=== PATIENT | female | born 1970 | race Caucasian/White ===

== ENCOUNTER 2016-08-23 18:42 | Emergency (ER) | payer MEDICAID, OTHER ==
[~2016-08-23] VITALS: Ht 157.5 cm; Wt 64.5 kg
[~2016-08-23 18:42] MED LIST: ACET-2158 GTB; HYDR-3498 PO; NITR-58 PO
[2016-08-23 18:47] VITALS: Ht 157.5 cm; Wt 64.5 kg
[2016-08-23] MEDS ORDERED: ACETAMINOPHEN 325 MG TAB PO ONE (19:30)
[2016-08-23 20:08] LABS: URINE BLOOD (Dip) POC Negative (NEGATIVE)
--- NOTE | 2016-08-23 21:03 | ERD ---
ER Documentation Chief Complaint Date/Time DATE: 08/23/16 TIME: 21:02 Chief Complaint cough x 10 days HPI 45-year-old female presents here in emergency department for complaints of right upper back pain cough for 10 days. Patient has been having dry cough, does not cough up any phlegm or blood. Patient did not take any medications to help with symptoms. Patient is complaining of right upper back pain, 4/10 scale , worse upon taking a deep breath. Patient denies any fever or chills. Patient denies chest pain. Patient denies any dizziness. Patient denies any shortness of breath. ROS All systems reviewed and are negative except as per history of present illness. Medications Home Meds Active Scripts Nitrofurantoin Monohyd Macrocr* (Macrobid*) 100 Mg Capsr, 100 MG PO BID for 7 Days, CAP Prov:ANSHUL ROCHA 11/23/15 Hydrocodone Bit-Acetaminophen* ([place]*) 5-325 Mg Tab, 1 TAB PO Q6 Y for PAIN, # 10 TAB Prov:ANSHUL ROCHA 11/23/15 Reported Medications Acetaminophen (TYLENOL 325 MG TAB) 325 Mg Tab, 325 MG GTB PRN 12/20/12 Allergies Allergies: Coded Allergies: No Known Allergy (Verified , 12/20/12) PMhx/Soc Medical and Surgical Hx: pt denies Surgical Hx History of Surgery: No Hx Neurological Disorder: No Hx Respiratory Disorders: No Hx Cardiac Disorders: No Hx Miscellaneous Medical Probl: Yes (ANEMIA) Hx Alcohol Use: Yes Hx Substance Use: No Hx Tobacco Use: No Smoking Status: Never smoker FmHx Family History: No coronary disease, No diabetes, No other Physical Exam Vitals Vital Signs Date Time Temp Pulse Resp B/P Pulse Ox O2 Delivery O2 Flow Rate FiO2 08/23/16 18:47 98.3 69 20 131/60 98 Physical Exam GENERAL: The patient is well developed and appropriate for usual state of health, in no apparent distress. CHEST: Clear to auscultation bilaterally. There are no rales, wheezes or rhonchi. HEART: Regular rate and rhythm. No murmurs, clicks, rubs or gallops. No S3 or S4. ABDOMEN: Soft, nontender and nondistended. Good bowel sounds. No rebound or guarding. No gross peritonitis. No gross organomegaly or masses. No Oakes sign or McBurney point tenderness. BACK: No midline or flank tenderness. EXTREMITIES: Equal pulses bilaterally. There is no peripheral clubbing, cyanosis or edema. No focal swelling or erythema. Full range of motion. Grossly neurovascularly intact. NEURO: Alert and oriented. Cranial nerves 2-12 intact. Motor strength in all 4 extremities with 5/5 strength. Sensation grossly intact. Normal speech and gait. SKIN: There is no apparent rash or petechia. The skin is warm and dry. HEMATOLOGIC AND LYMPHATIC: There is no evidence of excessive bruising or lymphedema. No gross cervical, axillary, or inguinal lymphadenopathy. Results 24 hrs Laboratory Tests Test 08/23/16 20:08 Bedside Urine pH (LAB) 7.0 Bedside Urine Protein (LAB) Negative Bedside Urine Glucose (UA) Negative Bedside Urine Ketones (LAB) Negative Bedside Urine Blood Negative Bedside Urine Nitrite (LAB) Negative Bedside Urine Leukocyte Esterase (L 1+ Current Medications Medications (Trade) Dose Ordered Sig/Ernato Route PRN Reason Start Time Stop Time Status Last Admin Dose Admin Acetaminophen (Tylenol Tab) 650 mg ONCE ONCE PO 08/23/16 19:30 08/23/16 19:31 DC 08/23/16 19:31 Patient was given medication for pain here in emergency department, after treatment, patient verbalized feeling much better. Patient's pain is improved. PROCEDURE: XR Chest. CLINICAL INDICATION: Dyspnea TECHNIQUE: Single frontal chest x-ray. COMPARISON: None. FINDINGS: The lungs are clear. No focal opacification is seen. The cardiomediastinal silhouette is unremarkable. The osseous structures are unremarkable. IMPRESSION: 1. There is no acute cardiopulmonary process. RPTAT: HMJB .Steven Lyn MD, MD Date Time Electronically viewed and signed by .Steven Lyn MD, MD on 08/23/2016 22:36 .B/ CC: KODI JACOBS MD Procedures/MDM Medical Decision Making: Patient symptoms are most likely consistent with with back chest wall strain, upper back pain most likely musculoskeletal pain. There is low suspicion for Pneumonia at this time since patients lungs sounds are clear, patient O2 saturation is normal and patient doesnt show any respiratory distress. Patients chest xray doesnt show infiltrates or any other cardiopulmonary emergencies at this time. There is low suspicion for other cardiopulmonary emergencies at this time such as CHF, Pulmonary Embolism, Pneumothorax, Aortic Aneurysm or any other cardiopulmonary emergencies at this time. There is low suspicion for sepsis. Patient appears well and is hemodynamically stable. Disposition: Home. Condition: Stable Prescriptions: Guaifenesin with codeine, Zyrtec, ibuprofen Instructions: Patient is advised to take medications as prescribed. Patient is advised to rest. Patient advised to increase fluid intake, do humidifier at home and if possible, do salt water gargles. Patient is advised that if symptoms are worse, shortness of breath, uncontrolled fever, stridor, vomiting, worst signs and symptoms to return to emergency department immediately. Otherwise, patient is advised to follow up with primary doctor in 5-7 days. Departure Diagnosis: Primary Impression: Acute bronchitis Bronchitis organism: unspecified organism Qualified Code: J20.9 - Acute bronchitis, unspecified organism Additional Impression: Back pain Back pain location: thoracic back pain Chronicity: acute Back pain laterality: right Qualified Code: M54.6 - Acute right-sided thoracic back pain Condition: Stable Patient Instructions: Back Pain (Acute Or Chronic), Bronchitis, No Antibiotic ( Adult) Additional Instructions: Patient is advised to take medications as prescribed. Patient is advised to rest. Patient advised to increase fluid intake, do humidifier at home and if possible, do salt water gargles. Patient is advised that if symptoms are worse, shortness of breath, uncontrolled fever, stridor, vomiting, worst signs and symptoms to return to emergency department immediately. Otherwise, patient is advised to follow up with primary doctor in 5-7 days. LOUISE MOBLEY NP Aug 23, 2016 21:03
--- NOTE | 2016-08-23 22:37 | RADRPT ---
PROCEDURE: XR Chest. CLINICAL INDICATION: Dyspnea TECHNIQUE: Single frontal chest x-ray. COMPARISON: None. FINDINGS: The lungs are clear. No focal opacification is seen. The cardiomediastinal silhouette is unremarka ble. The osseous structures are unremarkable. IMPRESSION: 1. There is no acute cardiopulmonary process. RPTAT: HMJB .Steven Lyn MD, MD Date Time Electronically viewed and signed by .Steven Lyn MD, on 08/23/2016 22:36 .B/
[2016-08-23] MEDS ORDERED: GUAI473L22 PO (22:46)
[2016-08-23] MEDS ORDERED: IBUP-1542 PO (22:46)
[2016-08-23] MEDS ORDERED: CETI10CA PO (22:46)
[2016-08-23 23:00] VITALS: BP 127/59; PULSE 62
== END 2016-08-23 23:03 | disposition home or self-care (01) ==
LOC: FTE 18:42
DX: J20.9 Acute bronchitis, unspecified (principal); M54.6 Pain in thoracic spine
CPT/HCPCS: 71010; 81003; 93005

== ENCOUNTER 2016-09-22 08:50 | Emergency (ER) | payer MEDICAID ==
[~2016-09-22] VITALS: Ht 154.9 cm; Wt 65.0 kg
[2016-09-22 08:50] VITALS: Ht 154.9 cm; Wt 65.0 kg
[~2016-09-22 08:50] MED LIST changes: +CETI10CA PO; +GUAI473L22 PO; +IBUP-1542 PO
[2016-09-22] MEDS ORDERED: HYDROCODONE/APAP (5/325) TAB PO ONE (09:30)
[2016-09-22 09:47] LABS: URINE BLOOD (Dip) POC Negative (NEGATIVE)
--- NOTE | 2016-09-22 10:07 | RADRPT ---
PROCEDURE: US Pelvis. CLINICAL INDICATION: pelvic pain TECHNIQUE: Multiple sonographic images of the pelvis were obtained utilizing a transabdominal and endovaginal technique. The images were reviewed on a PACS workstation. COMPARISON: None. FINDINGS: The uterus is normal in size with a normal appearance of the myometrium. The uterus measures 7.6 x 3.2 x 4.7 cm. The endometrial stripe is homogeneous in appearance and has the thickness of 6 mm. There are multiple Nabothian cysts in the cervix. The ovaries are normal in size and echogenicity. Normal Doppler flow is identified in both ovaries. The right ovary measures 3.0 x 1.6 x 1.8 cm. There is a 1.7 cm simple cyst in the right ovary. The left ovary measures 2.1 x 1.4 x 1.5 cm. No free fluid is present within the pelvis. RPTAT: AA IMPRESSION: Small simple cyst in the right ovary. Otherwise unremarkable. .Saurabh Sierra MD, MD Date Time Electronically viewed and signed by .Saurabh Sierra MD, on 09/22/2016 10:07 .S/
[2016-09-22] MEDS ORDERED: TRAM50TA2 PO (10:22)
[2016-09-22 10:39] VITALS: BP 126/74; PULSE 78; RESP 18; TEMP 97.9
--- NOTE | 2016-09-22 10:40 | ERD ---
ER Documentation Chief Complaint Date/Time DATE: 09/22/16 TIME: 10:38 Chief Complaint pelvic pain x 2 weeks, hx ovaryan cyst HPI 45-year-old female with history of ovarian cyst comes emergency room with bilateral pelvic pain, worse on the right side over the last 2 weeks. Patient states that she normally takes ibuprofen and it has seemed to help, and is here in the emergency room for repeat ultrasound. She states that her pain is sharp , the right pelvic region, at times it is diffuse. She states that she is sexually active. Uses condoms for protection does not have any history of vaginal discharge. She denies any fevers, chills. ROS All systems reviewed and are negative except as per history of present illness. Medications Home Meds Active Scripts Tramadol HCl (Tramadol HCl) 50 Mg Tablet, 50 MG PO Q4 Y for PAIN, #20 TAB Prov:IKE PEREZ PA-C 09/22/16 Cetirizine Hcl* (Zyrtec*) 10 Mg Capsule, 10 MG PO DAILY, #30 TAB.CHEW Prov:LOUISE MOBLEY NP 08/23/16 Guaifenesin-Codeine Phosphate* (Guaifenesin* AC Cough Syrup) 473 Ml Liquid, 5 ML PO Q4H Y for COUGH, #60 ML Prov:LOUISE MOBLEY NP 08/23/16 Ibuprofen* (Motrin*) 600 Mg Tab, 600 MG PO Q6H Y for PAIN AND OR ELEVATED TEMP, #30 TAB Prov:LOUISE MOBLEY NP 08/23/16 Nitrofurantoin Monohyd Macrocr* (Macrobid*) 100 Mg Capsr, 100 MG PO BID for 7 Days, CAP Prov:ANSHUL ROCHA 11/23/15 Hydrocodone Bit-Acetaminophen* ([place]*) 5-325 Mg Tab, 1 TAB PO Q6 Y for PAIN, # 10 TAB Prov:ANSHUL ROCHA 11/23/15 Reported Medications Acetaminophen (TYLENOL 325 MG TAB) 325 Mg Tab, 325 MG GTB PRN 12/20/12 Allergies Allergies: Coded Allergies: No Known Allergy (Verified , 12/20/12) PMhx/Soc History of Surgery: No Hx Neurological Disorder: No Hx Respiratory Disorders: No Hx Cardiac Disorders: No Hx Miscellaneous Medical Probl: Yes (ANEMIA) Hx Alcohol Use: Yes Hx Substance Use: No Hx Tobacco Use: No Physical Exam Vitals Vital Signs Date Time Temp Pulse Resp B/P Pulse Ox O2 Delivery O2 Flow Rate FiO2 09/22/16 08:50 98.1 70 18 135/71 99 Physical Exam General: Well-developed, well-nourished. The patient appears in no acute distress. HEENT: Head is normocephalic, atraumatic. No scleral icterus. Neck: Supple. Nontender. Lungs: Clear to auscultation. Normal air movement. Heart: Regular rate and rhythm. S1 and S2 are normal. No murmurs, gallops, or rubs. Abdomen: Soft, no McBurney tenderness, rebound or guarding, there is slight tenderness when the right lower pelvic region is palpated nondistended. Bowel sounds are normoactive. Extremities: No clubbing or cyanosis. Normal pulses. Moving extremities x 4. No weakness. Neurologic: Alert and oriented 3. No focal deficits. Skin: Normal turgor. No rash or lesions. Results 24 hrs Laboratory Tests Test 09/22/16 09:48 Bedside Urine pH (LAB) 5.5 Bedside Urine Protein (LAB) Negative Bedside Urine Glucose (UA) Negative Bedside Urine Ketones (LAB) Negative Bedside Urine Blood Negative Bedside Urine Nitrite (LAB) Negative Bedside Urine Leukocyte Esterase (L Negative Current Medications Medications (Trade) Dose Ordered Sig/Renato Route PRN Reason Start Time Stop Time Status Last Admin Dose Admin Acetaminophen/ Hydrocodone Bitart ([place] (5/325)) 1 tab ONCE ONCE PO 09/22/16 09:30 09/22/16 09:31 DC 09/22/16 10:31 PROCEDURE: US Pelvis. CLINICAL INDICATION: pelvic pain TECHNIQUE: Multiple sonographic images of the pelvis were obtained utilizing a transabdominal and endovaginal technique. The images were reviewed on a PACS workstation. COMPARISON: None. FINDINGS: The uterus is normal in size with a normal appearance of the myometrium. The uterus measures 7.6 x 3.2 x 4.7 cm. The endometrial stripe is homogeneous in appearance and has the thickness of 6 mm. There are multiple Nabothian cysts in the cervix. The ovaries are normal in size and echogenicity. Normal Doppler flow is identified in both ovaries. The right ovary measures 3.0 x 1.6 x 1.8 cm. There is a 1.7 cm simple cyst in the right ovary. The left ovary measures 2.1 x 1.4 x 1.5 cm. No free fluid is present within the pelvis. RPTAT: AA IMPRESSION: Small simple cyst in the right ovary. Otherwise unremarkable. .Saurabh Sierra MD, MD Date Time Electronically viewed and signed by .Saurabh Sierra MD, MD on 09/22/2016 10: 07 Procedures/[facility] ED course: She was given [place] in the emergency department, and reports that her pain is improved. When reexamining the patient she does not show any guarding or rebound pain or McBurney's tenderness. She is ambulatory and she is currently eating at this time. Medical decision makin-year-old female comes in with right-sided pelvic pain, differential diagnosis includes ovarian cyst, hemorrhagic cyst, ruptured ovarian cyst, adnexal masses, tubo-ovarian abscess, UTI, pyelonephritis, ectopic and among others are part of my differential diagnosis. Other differentials considered include an abdominal process including appendicitis however unlikely given her benign presentation. Her pelvic ultrasound shows a right simple ovarian cyst, without any adnexal masses and no evidence of ovarian torsion. She will be given a short course of tramadol, she was asked if she may take any medication to prevent cyst, I have given her referral list [facility]. Copies of her ultrasound today as well as her previous ultrasound are given to her at time of discharge to follow-up with her primary care physician for appropriate referral. Departure Diagnosis: Primary Impression: Ovarian cyst Condition: Good Patient Instructions: Ovarian Cyst Referrals: [facility] [place] [id number] [facility] [address] [place] [address] OFFICE FAX KIMO CAMERONNICA [address] [place] [address] DR. JIMENEZ, HARJINDER [address] [place] [address] DR MUNIZ, HESHMAT [address] [facility], [address], [place] [address] DR NELSON-NADER, [facility] [address] [facility] [place] [address] [facility] [address] [place] [address] [facility] [id number] - DR JIMENEZ, USMAN [address], [facility] [address] [address] KAPOOR, LIA [address] [facility]. [address], [facility] [address] [address] SAEED, FARID [address] [place], [place] [id number] Additional Instructions: Llame al doctor MAANA y lili tamara JINNY PARA DENTRO DE 1-2 LAW.Dgale a la secretaria que nosotros le instruimos hacer esta jinny.Avise o llame si kinney condicin se empeora antes de la jinny. Regresa aqui si peor o no mejor. IKE PEREZ PA-C September 22, 2016 10:40
== END 2016-09-22 10:40 | disposition home or self-care (01) ==
LOC: FTE 08:50
DX: N83.201 Unspecified ovarian cyst, right side (principal)
CPT/HCPCS: 76830; 76856; 81003; Z7502; Z7610

== ENCOUNTER 2018-10-03 22:08 | Emergency (ER) | payer MEDICAID, OTHER ==
[~2018-10-03] VITALS: Ht 160 cm; Wt 65.4 kg
[~2018-10-03 22:08] MED LIST changes: +TRAM50TA2 PO
[2018-10-03 22:12] VITALS: Ht 160 cm; Wt 65.4 kg
[2018-10-03] MEDS ORDERED: ACETAMINOPHEN 500 MG TAB PO STA (23:40)
--- NOTE | 2018-10-03 23:40 | ERD ---
ER Documentation Chief Complaint Chief Complaint headache x1week no other neurodeficits/back pain HPI This is a 47-year-old female who presents here in the emergency department with complaints of frontal and occipital headache for about a week. Complains of mild light sensitivity. Also complains of left-sided neck pain and left-sided chest pain that radiates to left upper extremity. Stated that she has multiple family members who had a heart attack before the age of 50. LMP: Stated that she does not have any periods anymore due to her surgery. G2, . Denies headache, head injury, loss of consciousness, dizziness, neck pain, neck stiffness, throat pain, difficulty swallowing, difficulty breathing lying flat, shoulder pain, chest pain, back pain, abdominal pain, nausea, vomiting, constipation, diarrhea, urinary symptoms, or possibility being , loss of bowel and bladder control, trauma, injury, falls, difficulty walking due to pain, numbness or tingling sensation, calf pain, recent travel, r ecent major surgery in the last 3 weeks, calf pain, recent long travel, recent exposure to any illness, recent antibiotic use in the last 3 months, fever, chills, seizures. Past medical history: Surgical history: Social: Denies smoking, use of alcoholic beverages, use of illegal drugs. ROS All systems reviewed and are negative except as per history of present illness. Medications Home Meds Active Scripts Meclizine Hcl* (Antivert*) 12.5 Mg Tab, 12.5 MG PO Q6H PRN for DIZZINESS, #20 TAB Prov:GOILADARELL TABOR 10/04/18 Hjkbslunty-Uplbsllopelbh-Avduyhcb* (Fioricet*) 50-300-40 Mg Capsule, 1 CAP PO Q4H PRN for SEVERE PAIN LEVEL 7-10, #10 CAP Prov:PASILADARELL TABOR F 10/04/18 Cyclobenzaprine Hcl* (Cyclobenzaprine Hcl*) 10 Mg Tablet, 10 MG PO Q8 PRN for MUSCLE SPASMS, #15 TAB Prov:PASILABANDARELL F 10/04/18 Ibuprofen* (Motrin*) 600 Mg Tab, 600 MG PO Q6H PRN for PAIN AND OR ELEVATED TEMP, #30 TAB Prov:PASILABANDARELL F 10/04/18 Tramadol HCl (Tramadol HCl) 50 Mg Tablet, 50 MG PO Q4 PRN for PAIN, #20 TAB Prov:IKE PEREZ PA-C 09/22/16 Cetirizine Hcl* (Zyrtec*) 10 Mg Capsule, 10 MG PO DAILY, #30 TAB.CHEW Prov:LOUISE MOBLEY HOT ROOM ATTENDANT 08/23/16 Guaifenesin-Codeine Phosphate* (Guaifenesin* AC Cough Syrup) 473 Ml Liquid, 5 ML PO Q4H PRN for COUGH, #60 ML Prov:LOUISE MOBLEY HOT ROOM ATTENDANT 08/23/16 Ibuprofen* (Motrin*) 600 Mg Tab, 600 MG PO Q6H PRN for PAIN AND OR ELEVATED TEMP, #30 TAB Prov:LOUISE MOBLEY HOT ROOM ATTENDANT 08/23/16 Nitrofurantoin Monohyd Macrocr* (Macrobid*) 100 Mg Capsr, 100 MG PO BID for 7 Days, CAP Prov:ANSHUL ROCHA 11/23/15 Hydrocodone Bit-Acetaminophen* ([place]*) 5-325 Mg Tab, 1 TAB PO Q6 PRN for PAIN, #10 TAB Prov:ANSHUL ROCHA 11/23/15 Reported Medications Acetaminophen (TYLENOL 325 MG TAB) 325 Mg Tab, 325 MG GTB PRN 12/20/12 Allergies Allergies: Coded Allergies: No Known Allergy (Verified , 12/20/12) PMhx/Soc History of Surgery: No Hx Neurological Disorder: No Hx Respiratory Disorders: No Hx Cardiac Disorders: No Hx Miscellaneous Medical Probl: Yes (ANEMIA) Hx Alcohol Use: Yes Hx Substance Use: No Hx Tobacco Use: No Physical Exam Vitals Vital Signs Date Temp Pulse Resp B/P (MAP) Pulse Ox O2 O2 Flow FiO2 Time Delivery Rate 10/04/18 97.9 64 18 133/69 100 Room Air 03:01 (90) 10/03/18 97.4 77 16 154/90 100 22:12 (111) Physical Exam Const: No acute distress Head: Atraumatic Eyes: Normal Conjunctiva. No visual field loss. Extraocular movement of her eyes are within normal limits. ENT: Normal External Ears, Nose and Mouth. Bilateral ears: TMs are not erythematous. No bleeding. No discharge. No hearing loss. No mastoid tenderness. Nose: Midline without deviation. No septal hematoma. There is frontal material sinus tenderness palpation. Throat: Uvula is midline and nondisplaced. Tonsils are +1 bilaterally without redness without exudates. Tolerating secretions. Patent airway. Speaks full and clear sentences. No tripoding. Neck: Full range of motion. No meningismus. No nuchal rigidity. No signs of meningeal irritation. Resp: Clear to auscultation bilaterally. Examined with female airplane patrol pilot, RN. No vesicular lesions. No crepitus. Cardio: Regular rate and rhythm, no murmurs Abd: Soft, non tender, non distended. Normal bowel sounds. Negative Oakes sign. Negative Cleve sign (heel jar test). Negative psoas sign. Negative Rovsing sign. Skin: No petechiae or rashes. No diaphoresis. Color appears normal for ethnicity. No skin tenting. No signs of severe dehydration. Back: No midline or flank tenderness. C-spine/T-spine/L-spine are in midline with good and full range of motion and is no swelling/5/bulging/point of tenderness. Ext: No cyanosis, or edema. Neur: Awake and alert. No facial droop. Equal chargeback analyst. Equal strength in bilateral upper and lower extremities. Able to bear weight on left lower extremity. Able to bear weight on right lower extremity. Sensation is intact. Romberg test is negative. No neurological deficits. Ambulatory with steady gait. Psych: Normal Mood and Affect. Denies auditory/visual hallucinati ons/delusions. Not suicidal. Not homicidal. Has the capacity to decide for herself. Has good support system at home. Result Diagram: 10/04/18 0001 10/04/18 0001 Results 24 hrs Laboratory Tests Test 10/03/18 23:52 10/03/18 23:55 10/04/18 00:01 Urine Color COLORLESS Urine Clarity CLEAR Urine pH 6.0 Urine Specific [place] 1.003 Urine Ketones NEGATIVE mg/dL Urine Nitrite NEGATIVE mg/dL Urine Bilirubin NEGATIVE mg/dL Urine Urobilinogen NEGATIVE mg/dL Urine Leukocyte Esterase NEGATIVE Sofia/ul Urine Microscopic RBC 0 /HPF Urine Microscopic WBC 0 /HPF Urine Hemoglobin 1+ mg/dL Urine Glucose NEGATIVE mg/dL Urine Total Protein NEGATIVE mg/dl POC Beta HCG, Qualitative NEGATIVE White Blood Count 7.9 10^3/ul Red Blood Count 3.75 10^6/ul Hemoglobin 11.4 g/dl Hematocrit 34.2 % Mean Corpuscular Volume 91.2 fl Mean Corpuscular Hemoglobin 30.4 pg Mean Corpuscular 33.3 g/dl Hemoglobin Concent Red Cell Distribution Width 12.1 % Platelet Count 265 10^3/UL Mean Platelet Volume 8.9 fl Immature Granulocytes % 0.300 % Neutrophils % 47.0 % Lymphocytes % 41.5 % Monocytes % 7.9 % Eosinophils % 2.7 % Basophils % 0.6 % Nucleated Red Blood Cells % 0.0 /100WBC Immature Granulocytes # 0.020 10^3/ul Neutrophils # 3.7 10^3/ul Lymphocytes # 3.3 10^3/ul Monocytes # 0.6 10^3/ul Eosinophils # 0.2 10^3/ul Basophils # 0.1 10^3/ul Nucleated Red Blood Cells # 0.0 10^3/ul Prothrombin Time 12.5 Sec Prothrombin Time Ratio 1.0 INR International 0.92 Normalized Ratio Activated Partial Thromboplast 28.5 Sec Time Sodium Level 143 mmol/L Potassium Level 3.8 mmol/L Chloride Level 105 mmol/L Carbon Dioxide Level 29 mmol/L Anion Gap 9 Blood Urea Nitrogen 20 mg/dl Creatinine 0.90 mg/dl Est Glomerular Filtrat > 60 mL/min Rate mL/min Glucose Level 88 mg/dl Calcium Level 9.3 mg/dl Total Bilirubin 0.9 mg/dl Direct Bilirubin 0.00 mg/dl Indirect Bilirubin 0.9 mg/dl Aspartate Amino 34 IU/L Transf (AST/SGOT) Alanine 36 IU/L Aminotransferase (ALT/SGPT) Alkaline Phosphatase 59 IU/L Troponin I < 0.012 ng/ml Total Protein 7.5 g/dl Albumin 4.5 g/dl Globulin 3.00 g/dl Albumin/Globulin Ratio 1.50 Current Medications Medications Dose Sig/Renato Start Time Status Last (Trade) Ordered Route PRN Stop Time Admin Dose Reason Admin 500 mg ONCE STAT 10/03/18 DC 10/04/18 Acetaminophen PO 23:40 00:05 (Tylenol 10/03/18 23:43 Tab) Procedures/MDM Diagnostic tests: POC urine : Negative. Urinalysis: Reviewed. EKG: Normal sinus rhythm with a ventricular rate of 68 bpm. No STEMI. Read by supervising physician. Blood works: Reviewed. Chest x-ray: No acute cardiac or pulmonary findings. CT of the brain: No definite acute intracranial abnormality including no intracranial hemorrhage, localizing mass affect or hydrocephalus. Treatment: Tylenol p.o. Re-evaluation: Denies headache, neck pain, chest pain, arm pain. No episode of emesis here in the emergency department. Romberg test is negative. No neurological deficit. Ambulatory with steady gait. Stated that she feels much better at this time and that she is ready to go home. Differential diagnosis I have low suspicion for acute microinfarction, acute coronary syndrome, pulmonary embolism, subarachnoid hemorrhage, meningitis, sepsis. Final diagnosis: Sinusitis (viral). Migraine attacks. Chest wall pain. Muscle spasms. Prescription: Motrin. Flexeril. Fioricet. Antivert. Follow-up with PCP in the next 24-48 hours. Come back here in the emergency department for any new symptoms or any worsening symptoms. All questions and concerns were answered. Patient and family members verbalized understanding and agreed with plan of care. Hemodynamically stable on discharge. Departure Diagnosis: Primary Impression: Headache Additional Impressions: Viral sinusitis Chest wall pain Muscle spasms of neck Muscle spasm Condition: Stable Additional Instructions: Follow-up with PCP in the next 24-48 hours. Come back here in the emergency department for any new symptoms or any worsening symptoms. DARELL SMILEY October 03, 2018 23:40
[2018-10-04] MEDS ORDERED: BUTA1CAP38 PO (02:20)
[2018-10-04] MEDS ORDERED: MECL12.574 PO (02:20)
[2018-10-04] MEDS ORDERED: CYCL10TA7 PO (02:20)
[2018-10-04] MEDS ORDERED: IBUP-1542 PO (02:20)
[2018-10-04 03:01] VITALS: BP 133/69; PULSE 64; RESP 18
== END 2018-10-04 03:02 | disposition home or self-care (01) ==
LOC: FTE 22:08
DX: J01.90 Acute sinusitis, unspecified (principal); R07.89 Other chest pain; M62.838 Other muscle spasm
CPT/HCPCS: 70450; 71046; 80053; 81001; 81025; 84484; 85025; 85610; 85730; 93005; Z7610

== ENCOUNTER 2019-03-17 08:57 | Emergency (ER) | payer MEDICAID ==
[~2019-03-17] VITALS: Ht 160 cm; Wt 65.9 kg
[~2019-03-17 08:57] MED LIST changes: +BUTA1CAP38 PO; +CYCL10TA7 PO; +MECL12.574 PO
[2019-03-17 09:03] VITALS: Ht 160 cm; Wt 65.9 kg
[2019-03-17] MEDS ORDERED: SOD CHLORIDE 0.9% 1,000 ML IV STA (09:44)
[2019-03-17] MEDS: KETOROLAC 15 MG INJ IV STA ×2 (09:58→10:02)
[2019-03-17] MEDS: ONDANSETRON 4 MG INJ IV STA ×2 (09:58→10:02)
[2019-03-17 11:57] VITALS: BP 107/74; PULSE 68; RESP 20
== END 2019-03-17 12:03 | disposition home or self-care (01) ==
LOC: E/R 08:57
DX: R10.2 Pelvic and perineal pain (principal)
CPT/HCPCS: 36415; 76830; 76856; 80053; 81003; 81025; 83690; 85025; J7030; Z7502; J1885; J2405